=== PATIENT | female | born 1970 | race Asian ===

== ENCOUNTER → 2018-02-24 | Outpatient (CLI) | payer MEDICAID ==
[~2018-02-24] MED LIST: CYMBALTA60 MG PO; FLEXERIL10 MG PO; LORTAB 5/500 501 TAB PO; MOTRIN800 MG PO; VICODIN 5/5001 UDTAB PO
== END ==
LOC: COL.VAS 12:10
DX: I10 Essential (primary) hypertension (principal); I07.1 Rheumatic tricuspid insufficiency; I34.0 Nonrheumatic mitral (valve) insufficiency